=== PATIENT | female | born 1975 | race African-American/Black ===

== ENCOUNTER 2019-02-12 09:40 | Emergency (ER) | payer MEDICAID ==
[~2019-02-12] VITALS: Ht 170.2 cm; Wt 89.0 kg
[2019-02-12] MEDS ORDERED: ONDANSETRON 4MG ODT PO ONE (11:00)
[2019-02-12] MEDS ORDERED: KETOROLAC 60MG/2ML VIAL IM ONE (11:00)
[2019-02-12] MEDS ORDERED: HYDROCODONE/ACETAMINOPHEN 5/325MG TABLET PO ONE (11:00)
[2019-02-12 15:38] VITALS: BP 120/67
== END 2019-02-12 16:12 | disposition home or self-care (01) ==
LOC: ER 09:40
DX: S00.83XA Contusion of other part of head, initial encounter (principal); M54.2 Cervicalgia; M79.661 Pain in right lower leg; Z88.0 Allergy status to penicillin; W18.2XXA Fall in (into) shower or empty bathtub, initial encounter; Y93.89 Activity, other specified; Y92.012 Bathroom of single-family (private) house as the place of occurrence of the external cause
CPT/HCPCS: 70450; 70486; 72125; 73030; 73060; 73590; 96372; 99284; J1885; Q0162

== ENCOUNTER 2021-06-15 08:48 | Emergency (ER) | payer MEDICAID ==
[~2021-06-15] VITALS: Ht 170.2 cm; Wt 85.0 kg
[2021-06-15] MEDS ORDERED: KETOROLAC 30MG/ML VIAL IV STA (09:40)
[2021-06-15] MEDS ORDERED: DEXAMETHASONE 4MG/ML 1ML VIAL IV ONE (09:45)
[2021-06-15] MEDS ORDERED: SODIUM CHLORIDE 0.9% 1,000 ML IV ONE (09:45)
[2021-06-15 10:06] LABS: BASOPHILS % 0.3 % (0.0-2.0); EOSINOPHILS % 1.5 % (0.0-5.0); HEMATOCRIT. 35.1 % (36.0-48.0); HEMOGLOBIN. 11.3 g/dL (12.0-16.0); LYMPHOCYTES % 8.5 % (20.0-50.0); MEAN CORPUSCULAR HEMOGLOBIN 24.1 pg (28.0-32.0); MEAN CORPUSCULAR VOLUME 74.9 fL (81.0-99.0); MEAN PLATELET VOLUME 8.1 fl (7.4-10.4); MONOCYTES % 6.9 % (2.0-8.0); NEUTROPHILS % 82.8 % (40.0-76.0); PLATELET 304 x1000/uL (130-400); RED BLOOD CELL COUNT 4.69 mill/uL (4.2-5.4); RED CELL DISTRIBUTION WIDTH 18.5 % (11.6-14.6)
[2021-06-15 10:16] LABS: CHLORIDE 107 mEq/L (98-107)
[2021-06-15 10:36] LABS: HCG SCREEN NEGATIVE
[2021-06-15] MEDS ORDERED: DEXAMETHASONE 10 MG/ML VIAL IV SCH (11:00)
[2021-06-15] MEDS ORDERED: TOPUD PO (12:12)
[2021-06-15] MEDS ORDERED: CLIN300C12 PO (12:12)
[2021-06-15] MEDS ORDERED: CLINDAMYCIN 300 MG in DEXTROSE 5% WATER 50 ML IV ONE (12:15)
[2021-06-15 14:05] LABS: CLARITY URINE CLEAR (CLEAR); COLOR URINE YELLOW (YELLOW); KETONES URINE NEGATIVE (NEGATIVE); LEUKOCYTE ESTERASE URINE NEGATIVE (NEGATIVE); NITRITE URINE NEGATIVE (NEGATIVE); OCCULT BLOOD URINE TRACE (NEGATIVE); PROTEIN URINE NEGATIVE (NEGATIVE)
[2021-06-15 14:26] VITALS: BP 129/84
== END 2021-06-15 14:40 | disposition home or self-care (01) ==
LOC: ER 08:48
DX: J02.9 Acute pharyngitis, unspecified (principal); Z88.0 Allergy status to penicillin
CPT/HCPCS: 36415; 70491; 80053; 81003; 84703; 85025; 87070; 87430; 96361; 96365; 96366; 96375; 99284; J1100; J1885; J3490; J7030; J7060

== ENCOUNTER 2021-08-27 15:04 | Emergency (ER) | payer MEDICAID, MEDICARE, OTHER ==
[~2021-08-27] VITALS: Ht 167.6 cm; Wt 82.0 kg
[~2021-08-27 15:04] MED LIST: CLIN-194 PO; TOPUD PO
[2021-08-27 18:02] LABS: BASOPHILS % 0.4 % (0.0-2.0); EOSINOPHILS % 1.5 % (0.0-5.0); HEMATOCRIT. 38.7 % (36.0-48.0); LYMPHOCYTES % 35.8 % (20.0-50.0); MEAN CORPUSCULAR HEMOGLOBIN 25.2 pg (28.0-32.0); MEAN CORPUSCULAR VOLUME 81.1 fL (81.0-99.0); MEAN PLATELET VOLUME 7.6 fl (7.4-10.4); MONOCYTES % 8.7 % (2.0-8.0); NEUTROPHILS % 53.6 % (40.0-76.0); PLATELET 274 x1000/uL (130-400); RED BLOOD CELL COUNT 4.77 mill/uL (4.2-5.4); RED CELL DISTRIBUTION WIDTH 18.2 % (11.6-14.6)
[2021-08-27 18:20] LABS: CHLORIDE 107 mEq/L (98-107)
[2021-08-27 18:28] LABS: HCG SCREEN INDETERMINATE
[2021-08-27 21:11] VITALS: BP 123/79
[2021-08-27] MEDS ORDERED: ALBUTEROL (0.083%) 2.5MG/3ML NEB HHN STA (21:24)
== END 2021-08-27 22:21 | disposition home or self-care (01) ==
LOC: ER 15:17
DX: R06.02 Shortness of breath (principal); R05.9 Cough, unspecified; Z88.0 Allergy status to penicillin
CPT/HCPCS: 36415; 71045; 80053; 83880; 84484; 84702; 84703; 85025; 85379; 93005; 94640; 99285; Z7610

== ENCOUNTER 2022-12-18 14:53 | Emergency (ER) | payer MEDICAID, OTHER ==
[~2022-12-18] VITALS: Ht 165.1 cm; Wt 68.0 kg
[2022-12-18 15:31] VITALS: O2SAT 98
[2022-12-18 15:47] LABS: BASOPHILS % 0.3 % (0.0-2.0); EOSINOPHILS % 0.1 % (0.0-5.0); HEMATOCRIT. 39.1 % (36.0-48.0); HEMOGLOBIN. 12.8 g/dL (12.0-16.0); LYMPHOCYTES % 10.2 % (20.0-50.0); MEAN CORPUSCULAR HEMOGLOBIN 26.4 pg (28.0-32.0); MEAN CORPUSCULAR HGB CONC 32.8 g/dL (31.0-37.0); MEAN CORPUSCULAR VOLUME 80.4 fL (81.0-99.0); MEAN PLATELET VOLUME 8.2 fl (7.4-10.4); MONOCYTES % 7.2 % (2.0-8.0); NEUTROPHILS % 82.2 % (40.0-76.0); PLATELET 308 x1000/uL (130-400); RED BLOOD CELL COUNT 4.87 mill/uL (4.2-5.4); RED CELL DISTRIBUTION WIDTH 14.6 % (11.6-14.6); WHITE BLOOD COUNT 14.7 x1000/uL (4.5-11.0)
[2022-12-18 15:54] LABS: CHLORIDE 102 mEq/L (98-107); INDEX HEMOLYSI 1 (1-3); INDEX ICTERIC 1 (1-4); INDEX LIPEMIC 1 (1-3); POTASSIUM 3.6 mEq/L (3.5-5.1); SODIUM 134 mEq/L (136-145)
[2022-12-18 16:22] LABS: ALANINE AMINOTRANSFERASE 15 IU/L (13-61); ALBUMIN 3.8 g/dL (3.4-5.0); ASPARTATE AMINOTRANSFERASE 8 IU/L (15-37); CALCIUM 9.6 mg/dL (8.5-10.1); CARBON DIOXIDE 22 mEq/L (21-32); CREATININE 0.8 mg/dL (0.6-1.3); GLUCOSE 118 mg/dL (70-105); PROTEIN TOTAL 8.8 g/dL (6.0-8.3); UREA NITROGEN BLOOD 9 mg/dL (7-21)
[2022-12-18 16:56] LABS: BILIRUBIN TOTAL 0.6 mg/dL (0.1-1.0)
[2022-12-18 17:05] LABS: CLARITY URINE CLOUDY (CLEAR); COLOR URINE YELLOW (YELLOW); GLUCOSE URINE NEGATIVE (NEGATIVE); KETONES URINE TRACE (NEGATIVE); LEUKOCYTE ESTERASE URINE 3+ (NEGATIVE); NITRITE URINE NEGATIVE (NEGATIVE); OCCULT BLOOD URINE TRACE (NEGATIVE); PH URINE 6.5 (4.5-8.0); PROTEIN URINE TRACE (NEGATIVE); SPECIFIC GRAVITY URINE 1.021 (1.005-1.030)
[2022-12-18 17:30] LABS: BACTERIA URINE 2+; RBC URINE 0-2 /hpf (0-2); SQUAMOUS EPITHELIAL CELL URINE 1+ /lpf (RARE/1+)
[2022-12-18 17:31] LABS: TRICHOMONAS URINE 1+; WBC URINE 15-25 /hpf (0-2)
[2022-12-18] MEDS ORDERED: CEFTRIAXONE SODIUM 1 G/VIAL IM ONE (17:45)
[2022-12-18] MEDS ORDERED: KETOROLAC 60MG/2ML VIAL IM ONE (17:45)
[2022-12-18] MEDS ORDERED: LIDOCAINE HCL 1% 20ML VIAL (Pyxis) INJ INFIL ONE (17:45)
[2022-12-18] MEDS ORDERED: ONDANSETRON 4MG ODT PO ONE (18:00)
[2022-12-18] MEDS ORDERED: IBUP-2028 MT (18:24)
[2022-12-18] MEDS ORDERED: TOPUD PO (18:24)
[2022-12-18] MEDS ORDERED: METR-167 MT (18:24)
[2022-12-18] MEDS ORDERED: CEFP200T13 MT (18:24)
[2022-12-18 19:34] VITALS: BP 110/70; PULSE 84; RESP 16; TEMP 98.6
== END 2022-12-18 19:36 | disposition home or self-care (01) ==
LOC: ER 14:53
DX: N39.0 Urinary tract infection, site not specified (principal); A59.9 Trichomoniasis, unspecified; Z88.0 Allergy status to penicillin; Z91.013 Allergy to seafood
CPT/HCPCS: 80053; 81003; 81025; 85025; 87086; 36415; 96372; 99284; Q0162; J0696; J1885; J3490; Z7610